=== PATIENT | female | born 1990 | race Caucasian/White ===

== ENCOUNTER 2024-12-04 17:47 | Emergency (ER) | payer MEDICAID ==
[2024-12-04] MEDS ORDERED: Naloxone 2 MG/2 ML Syringe IVPUSH PRN (19:10)
[2024-12-04] MEDS ORDERED: HYDROmorphone 1 MG/ML Syringe SUBCUT ONE (19:15)
[2024-12-04] MEDS: HYDROmorphone 2 MG/ML Syringe ONE (19:17)
[2024-12-04] MEDS: Ketorolac 30 MG/ML SDV IM ONE (19:21)
[2024-12-04] MEDS ORDERED: HYDROmorphone 2 MG/ML Syringe SUBCUT PRN (19:22)
[2024-12-04] MEDS ORDERED: Acetaminophen/oxyCODONE 325-5 MG Tab ONE (20:00)
== END 2024-12-04 20:15 | disposition home or self-care (01) ==
LOC: LB.ED 17:47
DX: K08.89 Other specified disorders of teeth and supporting structures (principal); E78.00 Pure hypercholesterolemia, unspecified; F17.210 Nicotine dependence, cigarettes, uncomplicated; Z90.710 Acquired absence of both cervix and uterus; Z88.0 Allergy status to penicillin; Z88.5 Allergy status to narcotic agent; Z88.8 Allergy status to other drugs, medicaments and biological substances
CPT/HCPCS: 96372; 99282; A9270-GY; J1885